=== PATIENT | female | born 1990 | race Caucasian/White ===

== ENCOUNTER 2021-04-04 12:15 | Emergency (ER) | payer OTHER, SELFPAY ==
[2021-04-04 13:06] VITALS: BP 141/71; PULSE 99; RESP 18; TEMP 36.5; O2SAT 100
--- NOTE | 2021-04-04 14:05 | ED.URI ---
HPI - URI/Sore Throat General Chief Complaint: Upper Respiratory Infection Stated Complaint: Cough,Runny Nose Time Seen by Provider: 04/04/21 14:10 Source: patient, RN notes reviewed and old records reviewed Mode of arrival: ambulatory Limitations: no limitations History of Present Illness HPI Narrative: 30-year-old female who presents to [facility] accompanied by 2 daughters who are also ill with complaints of cough and sinus drainage and some sinus pressure for the past 4 days. Patient denies any known fevers, chills or sweats or any body aches. Patient states that she has not experienced any shortness of breath or any noted wheezing, respirations are even and nonlabored.Patient has had COVID vaccination with no known exposure. MD elicited complaint: cough, rhinorrhea and nasal congestion Treatments prior to arrival: acetaminophen Related Data Allergies Allergy/AdvReac Type Severity Reaction Status Date / Time ibuprofen Allergy Mild HIVES Verified 04/04/21 14:34 Review of Systems Review of Systems: CONSTITUTIONAL: Denies fever, chills, or sweats. EYES: Denies visual changes, redness, or discharge. ENT: Positive for rhinorrhea, congestion,no sore throat, or otalgia. CARDIOVASCULAR: Denies chest pain, palpitations, or edema. RESPIRATORY: Positive for cough no dyspnea. GASTROINTESTINAL: Denies abdominal pain, nausea, vomiting, or diarrhea. GENITOURINARY: Denies dysuria or hematuria. SKIN: Denies rash or itching. MUSCULOSKELETAL: Denies back pain, joint pain, denies body aches NEUROLOGIC: Denies headache, numbness, or weakness. PSYCHIATRIC: Denies anxiety or depression. All systems reviewed & are unremarkable except as noted in HPI and below [facility] Past Medical History Medical History (Updated 04/08/21 @ 20:03 by Roseann Braun NP) Gestational hypertension Surgical History Surgical History (Updated 04/08/21 @ 19:57 by Roseann Braun NP) History of cholecystectomy Social History Social History (Updated 04/08/21 @ 19:57 by Roseann Braun NP) Smoking status: Never smoker Alcohol intake: current Alcohol use details: rare social Substance use: never Living arrangements: with family Additional occupation/education comments: nurse Gender identity (if verbalized by the patient): Female Comments At time of signature, agree with nursing past medical, surgical, social and family history. There is no relevant family history pertinent to the presenting complaint Exam Narrative: GENERAL: Well-appearing, well-nourished, and in no acute distress. HEAD: Normocephalic, atraumatic. EYES: PERRLA and EOMI. ENT: Nares red membranes noted with clear rhinorrhea no epistaxis, some sinus pressure to face. Mucous membranes moist.TM's normal with good light reflex, throat mildly red with no lesions or exudates, no tonsil enlargement, post nasal drainage noted NECK: Supple.no lymphadenopathy CHEST: Clear to auscultation. No respiratory distress.cough noted with no tachypnea or any accessory muscle use, SA02 100% on room air HEART: Regular rate and rhythm. No murmur heard. Normal peripheral pulses. ABDOMEN: Soft, nontender, nondistended, normal active bowel sounds. EXTREMITIES: Normal range of motion. No edema. SKIN: Warm, dry, no rash. NEURO: No focal deficits. Alert and oriented x3. Course Vital Signs Vital signs: Vital Signs Temperature 36.5 C 04/04/21 13:06 Pulse Rate 99 04/04/21 13:06 Respiratory Rate 18 04/04/21 13:06 Blood Pressure 141/71 H 04/04/21 13:06 Pulse Oximetry 100 04/04/21 13:06 Temperature 36.5 C 04/04/21 13:06 Pulse Rate 99 04/04/21 13:06 Respiratory Rate 18 04/04/21 13:06 Blood Pressure 141/71 H 04/04/21 13:06 Pulse Oximetry 100 04/04/21 13:06 MDM - URI/Sore Throat Differential Diagnosis Differential diagnosis: Likely upper respiratory infection, sinusitis, viral infection and pharyngitis Medical Records Attestation: I reviewed the patient's medic
== END 2021-04-04 14:38 | disposition home or self-care (01) ==
PROVIDERS: Emergency Provider Registered Nurse
DX: J06.9 Acute upper respiratory infection, unspecified (principal); Z20.822 Contact with and (suspected) exposure to COVID-19
CPT/HCPCS: 87426; 99213; C9803; G0463

== ENCOUNTER 2022-08-14 09:00 | Outpatient (RCR) | payer OTHER, SELFPAY ==
--- NOTE | 2022-07-18 13:40 | PTOPEVAL1 ---
Assessment and note entered by Katelyn Song DPT Evaluation Information Assessment Status Evaluation Subjective Information Pt reports she has been diagnosed with a grade 2 bladder prolapse . Is also noticing stress incontinence at times, less often than once a week . Has noticed a bulge but no pressure. Urinates 4- 5 times a day and none at night. Denies pain with urination. Can hold urge at least an hour. BM usually twice a day, diagnosed with IBS. No history of pelvic pain. Pt has been 4 times, 4 deliveries all vaginal with no complications. Has been told her uterus is tilted and her cervix comes down low. Reported Pain Level Pain Score 0: Self Report Assessment PT Clinical Summary The patient is presenting to skilled therapy with a diagnosis of pelvic organ prolapse and also reports infrequent urinary incontinence. She presents with decreased core and hip strength, a diastasis recti, and overall decreased pelvic floor strength and endurance which are contributing to her prolapse and incontinence. She will benefit from therapy to address these impairments in order to return to prior level of function. Plan of Care Interventions Manual Therapy,Neuro Re-education,Patient/ Caregiver Education,Therapeutic Activities, Therapeutic Exercise,Self-Care/Home Management PT Services Indicated Yes Treatment Frequency and 1 time a week for 4 weeks Duration These treatments will address the objective and functional deficits as defined above. The patient will be advanced safely and appropriately in order for the patient to progress towards his/her prior level of function. Additional exercises will be introduced and as well as a comprehensive home exercise program upon discharge, if needed, ?to ensure carryover of functional gains achieved in the clinic. This treatment plan has been reviewed and agreement upon by the patient.
--- NOTE | 2022-08-14 09:38 | PTOPPROG ---
Assessment and note entered by Katelyn Song DPT Evaluation Information Assessment Status Progress Subjective Information Pt reports she has noticed the exercises are easier to do. Not really having incontinence and has not noticed any symptoms of prolapse. Assessment PT Clinical Summary The patient has made good progress in therapy and reports her HEP seems easier to perform. She demonstrates improved pelvic floor strength, endurance, and coordination, and overall improved core and hip strength including diastasis closure. Due to her progress but continued pelvic floor weakness, plan to continue to further address strengthening. Plan of Care Interventions Manual Therapy,Neuro Re-education,Patient/ Caregiver Education,Therapeutic Activities, Therapeutic Exercise,Self-Care/Home Management PT Services Indicated Yes Treatment Frequency and 1 visit every other week for 3 visits Duration These treatments will address the objective and functional deficits as defined above. The patient will be advanced safely and appropriately in order for the patient to progress towards his/her prior level of function. Additional exercises will be introduced and as well as a comprehensive home exercise program upon discharge, if needed, ?to ensure carryover of functional gains achieved in the clinic. This treatment plan has been reviewed and agreement upon by the patient.
--- NOTE | 2022-08-28 11:25 | PCPTNOTE ---
Patient called to cancel appointment on 08/29/22, she picked up a shift at work.
--- NOTE | 2022-09-11 08:07 | PCPTNOTE ---
Patient called to cancel appointment on 09/11/22 due to a child's dental appointment.
--- NOTE | 2022-09-25 09:57 | PCPTNOTE ---
Patient did not show up for appointment 09/25/22. Called and left voicemail for patient.
--- NOTE | 2022-09-26 09:37 | PTOPDC ---
Assessment and note entered by DARIELA GonzalezT Evaluation Information Assessment Status Discharge - Pt Not Present Subjective Information Assessment PT Clinical Summary Patient has cancelled or no showed her last 3 scheduled visits. Due to our attendance policy she will be discharged at this time. Plan of Care PT Services Indicated No
== END 2022-09-26 10:51 | disposition home or self-care (01) ==
LOC: ANHPT 09:00
PROVIDERS: Visit Provider Obstetrics & Gynecology
DX: N81.89 Other female genital prolapse (principal)
CPT/HCPCS: 97112; 97161; 99199

== ENCOUNTER 2023-01-18 06:51 | Outpatient (CLI) | payer OTHER, SELFPAY ==
[2023-01-21 06:34] LABS: FSH 5.5 mIU/mL (***); LH 7.2 mIU/mL (***)
[2023-01-22 06:17] LABS: Progesterone 3.3 ng/mL (***)
[2023-01-26 01:03] LABS: Estradiol, Ultrasensitive 99 pg/mL
== END 2023-01-18 06:52 | disposition home or self-care (01) ==
LOC: ANHOBOP 06:53
PROVIDERS: Visit Provider Obstetrics & Gynecology
DX: N92.6 Irregular menstruation, unspecified (principal)
CPT/HCPCS: 36415; 82670; 83001; 83002; 84144; 84443